=== PATIENT | female | born 1980 | race Caucasian/White ===

== ENCOUNTER → 2017-02-08 | Outpatient (CLI) | payer OTHER ==
[2017-02-08 17:42] LABS: ALBUMIN 4.7 g/dL (3.5-5.0); DIRECT BILIRUBIN 0.4 mg/dL (0.0-0.4); TOTAL BILIRUBIN 0.5 mg/dL (0.2-1.3); TOTAL PROTEIN 8.3 g/dL (6.3-8.2)
== END ==
LOC: LAB 16:19
PROVIDERS: Nurse Practitioner Family
DX: B35.1 Tinea unguium (principal)

== ENCOUNTER → 2017-03-31 | Outpatient (CLI) | payer OTHER ==
[2017-03-31 17:18] LABS: ALBUMIN 4.6 g/dL (3.5-5.0); DIRECT BILIRUBIN 0.2 mg/dL (0.0-0.4); TOTAL BILIRUBIN 0.2 mg/dL (0.2-1.3); TOTAL PROTEIN 8.2 g/dL (6.3-8.2)
== END ==
LOC: LAB 16:51
PROVIDERS: Nurse Practitioner Family
DX: B35.1 Tinea unguium (principal)